=== PATIENT | male | born 1985 | race Hispanic/Latino ===

== ENCOUNTER 2017-01-21 11:45 | Emergency (ER) | payer OTHER ==
[2017-01-21] MEDS ORDERED: BOOSTRIX IM ONE ×2 (11:56→14:53)
[2017-01-21 12:00] VITALS: BP 126/88
--- NOTE | 2017-01-21 12:01 | Emergency Department Report ---
Entered by OBDULIA SMITH, acting as scribe for LILI JONES NP. Chief Complaint: Head Injury Stated Complaint: HIT HEAD/EMESIS/LIGHT HEADED Time Seen by Provider: 01/21/17 11:55 - HPI History of Present Illness: 31 y/o male presents with laceration to the top of his head that occurred yesterday. Pt notes that he hit affected area again today and immediately felt nauseous. - ROS Review of Systems: +laceration +nausea/ vomiting - Exam Vital Signs: Vital Signs 01/21/17 11:56 Temperature 98.7 F Pulse Rate 64 Respiratory 16 Rate Blood Pressure 126/88 O2 Sat by Pulse 97 Oximetry Physical Exam: a and o x4 1cm laceration to top of head gcs 15 MSE screening note: Focused history and physical exam performed. Due to findings the following was ordered: ct, med ED Disposition for MSE Condition: Stable This documentation as recorded by the scribeSARAH RYAN,accurately reflects the service I personally performed and the decisions made by ,LILI JONES , KELIN.
--- NOTE | 2017-01-21 12:55 | Cat Scan Report ---
Cranial CT without contrast. History: Head injury with nausea and vomiting. Findings: The brain parenchyma is normal. There is no evidence of hemorrhage or infarct. No masses or extra-axial collections are seen. The ventricles are normal in size and contour. The calvarium is intact. There is partial opacification of the ethmoid air cells. Impression: 1. No intracranial abnormalities. 2. Chronic ethmoid sinusitis.
[2017-01-21] MEDS ORDERED: TORADOL IM ONE (14:50)
--- NOTE | 2017-01-21 14:59 | Emergency Department Report ---
ED Head Trauma HPI - General Chief complaint: Head Injury Stated complaint: HIT HEAD/EMESIS/LIGHT HEADED Time Seen by Provider: 01/21/17 11:55 Source: patient Mode of arrival: Ambulatory Limitations: No Limitations - History of Present Illness Initial comments: This is a 31-year-old male nontoxic, well nourished in appearance, no acute signs of distress evidence of ED complaining of abrasion to occipital scalp with headache times one day. 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 Patient stated symptoms has subsided last night and then patient today had a same head injury episode around 8 AM to do same scalp region. Patient denies any loss of consciousness. He became a little dizzy but denies any dizziness today in the ED. patient currently in the ED denies any nausea or vomiting upon is interviewed. Patient denies any blurred vision, chest pain , shortness of breath, nausea, vomiting, fever, stiff neck, numbness, tingling, or abdominal pain. Patient denies any allergies or past medical history. MD Complaint: head injury -: Gradual, days(s) (1) Mechanism of Injury: work related injury Location: occipital Loss of Consciousness: no Previous Trauma to this Area: No Place: work Radiation: none Severity: moderate Severity scale (0 -10): 8 Quality: aching Consistency: constant Provoking factors: none known Other Injuries: other (abrasion) Associated Symptoms: denies other symptoms. denies: confusion, amnesia, repetitive questioning, vision changes, nausea, vomiting, vertigo, syncope, numbness, weakness, tingling, neck pain - Related Data Previous Rx's Medication Instructions Recorded Last Taken Type Ibuprofen [Motrin 600 MG tab] 600 mg PO Q8H PRN #30 tablet 01/21/17 Unknown Rx Allergies/Adverse reactions: Allergies Allergy/AdvReac Type Severity Reaction Status Date / Time No Known Allergies Allergy Unverified 01/21/17 11:56 ED Review of Systems ROS: Stated complaint: HIT HEAD/EMESIS/LIGHT HEADED Other details as noted in HPI Constitutional: denies: chills, fever Eyes: denies: eye pain, eye discharge, vision change ENT: denies: ear pain, throat pain Respiratory: denies: cough, shortness of breath, wheezing Cardiovascular: denies: chest pain, palpitations Endocrine: no symptoms reported Gastrointestinal: denies: abdominal pain, nausea, diarrhea Genitourinary: denies: urgency, dysuria Musculoskeletal: denies: back pain, joint swelling, arthralgia Skin: denies: rash, lesions Neurological: denies: headache, weakness, paresthesias Psychiatric: denies: anxiety, depression Hematological/Lymphatic: denies: easy bleeding, easy bruising ED Past Medical Hx - Past Medical History Previous Medical History?: Yes Hx Asthma: Yes - Surgical History Past Surgical History?: No - Social History Smoking Status: Current Every Day Smoker Substance Use Type: Alcohol, Non Opiate Pain - Medications Home Medications: Home Medications Medication Instructions Recorded Confirmed Last Taken Type Ibuprofen [Motrin 600 MG tab] 600 mg PO Q8H PRN #30 tablet 01/21/17 Unknown Rx ED Physical Exam - General Limitations: No Limitations General appearance: alert, in no apparent distress - Head Head exam: Present: atraumatic, normocephalic, normal inspection - Eye Eye exam: Present: normal appearance, PERRL, EOMI. Absent: scleral icterus, conjunctival injection, nystagmus, periorbital swelling, periorbital tenderness Pupils: Present: normal accommodation - ENT ENT exam: Present: normal exam, normal orophraynx, mucous membranes moist, TM's normal bilaterally, normal external ear exam - Neck Neck exam: Present: normal inspection, full ROM. Absent: tenderness, meningismus, lymphadenopathy, thyromegaly - Respiratory Respiratory exam: Present: normal lung sounds bilaterally. Absent: respiratory distress, wheezes, rales, rhonchi, stridor, chest wall tenderness, accessory muscle use, decreased breath sounds, prolonged expiratory - Cardiovascular Cardiovascular Exam: Present: regular rate, normal rhythm, normal heart sounds. Absent: bradycardia, tachycardia, irregular rhythm, systolic murmur, diastolic murmur, rubs, gallop - GI/Abdominal GI/Abdominal exam: Present: soft, normal bowel sounds. Absent: distended, tenderness, guarding, rebound, rigid, diminished bowel sounds, hyperactive bowel sounds, hypoactive bowel sounds - Rectal Rectal exam: Present: deferred - Extremities Exam Extremities exam: Present: normal inspection, full ROM, normal capillary refill. Absent: tenderness, pedal edema, joint swelling, calf tenderness - Back Exam Back exam: Present: normal inspection, full ROM. Absent: tenderness, CVA tenderness (R), CVA tenderness (L), muscle spasm, paraspinal tenderness, vertebral tenderness, rash noted - Neurological Exam Neurological exam: Present: alert, oriented X3, CN II-XII intact, normal gait, reflexes normal - Expanded Neurological Exam Expanded Patient oriented to: Present: person, place, time Speech: Present: fluid speech Cranial nerves: EOM's Intact: Normal, Gag Reflex: Normal, Tongue Deviation: Normal, Nystagmus: Normal, Facial Sensation: Normal, Facial Palsy with Forehead Movement: Normal, Facial Palsy without Forehead Movement: Normal Cerebellar function: Finger to Nose: Normal, Heel to Anderson: Normal, Romberg: Normal Upper motor neuron: Jose Neglect: Normal, Abnormal Right, Pronator Drift: Normal , Abnormal Right, Babinski Sign: Normal, Abnormal Right, Sensory Extinction: Normal, Abnormal Right Sensory exam: Upper Extremity Light Touch: Normal, Upper Extremity Pin Prick: Normal, Upper Extremity Temperature: Normal, UE 2 Point Discrimination: Normal, Lower Extremity Light Touch: Normal, Lower Extremity Pin Prick: Normal, Lower Extremity Temperature: Normal, LE 2 Point Discrimination: Normal Motor strength exam: RUE: 5, LUE: 5, RLE: 5, LLE: 5 DTR: bicep (R): 2+, bicep (L): 2+, tricep (R): 2+, tricep (L): 2+, knee (R): 2+ , knee (L): 2+, ankle (R): 2+, ankle (L): 2+ Best Eye Response ([place]): (4) open spontaneously Best Motor Response ([place]): (6) obeys commands Best Verbal Response (Remy): (5) oriented Remy Total: 15 - Psychiatric Psychiatric exam: Present: normal affect, normal mood - Skin Skin exam: Present: warm, dry, intact, normal color, abrasion (1 cm abrasion to the occipital scalp region. No laceration. No bleeding. No swelling. No pus or drainage. No induration.). Absent: rash ED Course Vital Signs 01/21/17 11:56 Temperature 98.7 F Pulse Rate 64 Respiratory 16 Rate Blood Pressure 126/88 O2 Sat by Pulse 97 Oximetry - Reevaluation(s) Reevaluation #1: 08/22/17 15:07 Patient is being full sentences with no signs of distress - Radiology Data Radiology results: report reviewed interpreted by me: David Washington No intracranial abnormalities. Chronic ethmoid sinusitis. Critical care attestation.: If time is entered above; I have spent that time in minutes in the direct care of this critically ill patient, excluding procedure time. ED Disposition Clinical Impression: Contusion Qualifiers: Encounter type: initial encounter Contusion area: head Contusion of head detail : scalp Qualified Code(s): S00.03XA - Contusion of scalp, initial encounter Chronic sinusitis Qualifiers: Sinusitis location: unspecified location Qualified Code(s): J32.9 - Chronic sinusitis, unspecified Disposition: TO HOME OR SELFCARE Is pt being admited?: No Does the pt Need Aspirin: No Condition: Stable Instructions: Contusion in Adults (ED), Ibuprofen (By mouth), Sinusitis (ED) Additional Instructions: Follow-up with your primary care doctor in 3-5 days or symptoms such as blurry vision, severe headache, fever, chills, or worsening symptoms return to emergency room as soon as possible. Follow-up with ear, nose, throat doctor for the chronic ethmoid sinusitis. Prescriptions: Ibuprofen [Motrin 600 MG tab] 600 mg PO Q8H PRN #30 tablet PRN Reason: Pain Referrals: PRIMARY CAREMD [Primary Care Provider] - 3-5 Days PORTIA HOWELL MD [Staff Physician] - 3-5 Days [facility], [facility] [Provider Group] - 3-5 Days [facility] [Outside] - 3-5 Days [facility] [Outside] - 3-5 Days
== END 2017-01-21 15:27 | disposition home or self-care (01) ==
LOC: ED 11:45
DX: S00.03XA Contusion of scalp, initial encounter (principal); J32.9 Chronic sinusitis, unspecified; J45.909 Unspecified asthma, uncomplicated; F17.200 Nicotine dependence, unspecified, uncomplicated; W20.8XXA Other cause of strike by thrown, projected or falling object, initial encounter; Y93.89 Activity, other specified; Y92.89 Other specified places as the place of occurrence of the external cause; Y99.8 Other external cause status
CPT/HCPCS: 70450; 90471; 90715; 96372; 99283; J1885